=== PATIENT | female | born 1950 | race Caucasian/White ===

== ENCOUNTER 2016-07-16 14:00 | Inpatient (IN) | payer MEDICARE, OTHER ==
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
[2016-07-22] MEDS ORDERED: cefOXITIN 1 GM in NORMAL SALINE MINI-BAG+ 100 ML IV ONE (06:11)
[2016-07-22] MEDS ORDERED: cefOXITIN 1 GM/10 ML VIAL ONE (06:45)
[2016-07-22] MEDS ORDERED: LIDOCAINE HCL 1% 20 ML VIAL SUBCUT ONE ×2 (07:02→09:50)
[2016-07-22] MEDS ORDERED: LACTATED RINGERS 1,000 ML IV SCH ×3 (07:02→09:50)
[2016-07-22] MEDS: ACETAMINOPHEN 1,000 MG/100 ML VIAL IV SCH ×4 (07:06→19:14)
[2016-07-22] MEDS: FAMOTIDINE IN SALINE, ISO-OSM 20 MG/50 ML PIGGYBACK IV SCH ×2 (07:06→13:02)
[2016-07-22] MEDS ORDERED: HYDROmorphone HCL 1 MG/ML SYR ONE (07:14)
[2016-07-22] MEDS ORDERED: FENTANYL 100 MCG/2 ML VIAL ONE (07:14)
[2016-07-22] MEDS ORDERED: MIDAZOLAM HCL 2 MG/2 ML VIAL ONE (07:16)
--- NOTE | 2016-07-22 07:18 | PROCEDURE NOTE: GYN ---
[facility] [employer] [facility] Procedure - Brief Operative Note Date of procedure: 07/22/16 Pre-Op Diagnosis: Cystocele with uterine desensus Post-op diagnosis: same Procedure: TVH, Anterior repair, TOT, Cystoscopy Anesthesia Type: Spinal Physician: MARYBETH GALEANO Estimated Blood Loss: 50 Pathology: sent Sponge and instrument counts: correct Condition: stable Disposition: PACU Narrative: After placement of a spinal narcotic block in the pre-op area the patient is taken to the operating theater and placed supine on the operating table. General endotracheal anesthesia was induced. She is placed in dorsal lithotomy position using Mirza stirrups. Vagina and perineum are prepped, her bladder is drained, and then stained with indigo carmine dye. The patient is draped in the usual sterile fashion. The cervix is visualized and grasped with a double- tooth tenaculum. The vagina was incised circumferentially around the cervix. Using sharp and blunt dissection the anterior peritoneal reflection was identified and entered into sharply. A long retractor is then entered into this incision and the bladder is elevated. Posterior cul-de-sac was then entered into sharply and a long weighted retractor is entered into this incision. The uterosacral ligaments on both left and right sides are clamped cut and tied in a Edy fashion with 0 Vicryl sutures and tagged. Cardinal ligaments on both left and right sides are then clamped cut and ligated in Edy fashion with 0 Vicryl sutures. Uterine vessels on both left and right sides were then clamped cut and ligated in Edy fashion with 0 Vicryl sutures. The lower section of the broad ligament on both left and right sides are clamped cut and ligated in Edy fashion with 0 Vicryl sutures. Uterus is delivered posteriorly and the utero-ovarian round ligament complex on left right sides are clamped cut and ligated in Edy fashion with 0 Vicryl sutures. The uterus and cervix are removed and submitted to pathology. The left fallopian tube was mobilized and then the mesosalpinx is clamped cut and ligated in Edy fashion with 0 Vicryl sutures. The ovaries are atrophic and adherent to the pelvic sidewalls bilaterally so salpingoophorectomy is not performed. The posterior vaginal cuff was closed with a running interlocking 0 Vicryl suture. After assuring excellent hemostasis of all vascular pedicles the uterosacral ligament tags were attached to the lateral vaginal cuff, the anterior peritoneal reflection and exited the posterior cuff in the midline. The anterior vaginal mucosa is then infiltrated with a dilute solution of 1/4% Marcaine with epinephrine, mixed 50/50 with Saline. The anterior vaginal mucosa is then opened in the midline to the level of the mid-urethra. Using gentle sharp and blunt dissection the vagina is mobilized from the overlying bladder. After adequate mobilization the cystocele is repaired by plicating the vesico-vaginal fascia across the midline using 2-0 PDS mattress sutures. Following this a tract is created lateral to the mid-urethra on both sides using the Metzenbaum scissors in a "push spread" technique to the obturator fascia which is then perforated. The winged guide is placed and a Gynecare transobturator tension free vaginal tape is placed bilaterally and exited the skin through small stab wounds. A curved clamp is placed between the tape and the urethra. Tension on the tape is adjusted and the sheathing removed. The stab wounds are closed with Dermabond. The redundant vaginal mucosa is trimmed and then closed with interrupted figure of eight 2-0 Vicryl sutures.The vaginal cuff is closed with multiple figure of eight 0-Vicryl sutures. The uterosacral ligament tags are tied in the midline with excellent support of the vaginal cuff. Cystoscopy is then performed revealing no visible trauma to the bladder and flow of dye from the ureteral orifices bilaterally. A Valdes catheter is placed to down drain, the patient placed supine on the operating table, awakened by anesthesia and taken to PACU. the patient placed supine on the operating table, awakened by anesthesia and taken to PACU.
[2016-07-22] MEDS ORDERED: EPHEDrine SULFATE 50 MG/ML VIAL ONE (07:21)
[2016-07-22] MEDS ORDERED: PHENYLEPHRINE HCL 10,000 MCG/ML VIAL ONE (07:22)
[2016-07-22] MEDS: MIDAZOLAM HCL 2 MG/2 ML SYR IV ONE ×2 (07:25→08:09)
[2016-07-22] MEDS ORDERED: ETOMIDATE 40 MG/20 ML VIAL IV ONE (07:29)
[2016-07-22] MEDS ORDERED: SUCCINYLCHOLINE CHLORIDE 200 MG/10 ML VIAL ONE (07:29)
[2016-07-22] MEDS ORDERED: METHYLENE BLUE 10 MG/ML VIAL IV ONE (07:34)
[2016-07-22] MEDS ORDERED: NORMAL SALINE FLUSH 20 ML ONE (07:35)
[2016-07-22] MEDS ORDERED: NORMAL SALINE FLUSH 30 ML ONE (07:35)
[2016-07-22] MEDS ORDERED: BUPIVACAINE/EPI 0.25% 1 VIAL VIAL ONE (07:35)
[2016-07-22] MEDS ORDERED: FLUORESCEIN IV ONE (07:38)
[2016-07-22] MEDS ORDERED: ONDANSETRON HCL 4 MG/2 ML VIAL ONE (08:28)
[2016-07-22] MEDS ORDERED: DIPHENHYDRAMINE 50 MG/ML VIAL IV PRN ×2 (09:50→10:31)
[2016-07-22] MEDS ORDERED: ONDANSETRON HCL 4 MG/2 ML VIAL IV PRN ×2 (09:50→10:31)
[2016-07-22] MEDS ORDERED: DIPHENHYDRAMINE 25 MG CAPSULE PO PRN ×2 (09:50→10:31)
[2016-07-22] MEDS ORDERED: NALOXONE HCL 0.4 MG/ML VIAL IV PRN ×5 (09:50→10:31)
[2016-07-22] MEDS ORDERED: NALBUPHINE HCL 10 MG/ML AMP IV PRN (09:50)
[2016-07-22] MEDS ORDERED: HYDROmorphone HCL 1 MG/ML SYR IV PRN (09:50)
[2016-07-22] MEDS ORDERED: FENTANYL 100 MCG/2 ML VIAL IV PRN (09:50)
[2016-07-22] MEDS ORDERED: ZOLPIDEM TARTRATE 5 MG TABLET PO PRN (10:31)
[2016-07-22] MEDS ORDERED: SIMETHICONE CHEW 80 MG TABLET PO PRN (10:31)
[2016-07-22] MEDS ORDERED: ACETAMINOPHEN 1,000 MG/100 ML VIAL IV SCH (10:31)
[2016-07-22] MEDS: POTASSIUM CHLORIDE/D5 0.45%NAC 1,000 ML IV SCH ×2 (11:53→20:06)
--- NOTE | 2016-07-22 17:46 | PROGRESS NOTE: GYN Post-op ---
Assessment and Plan - Date of Encounter Date of Encounter: 07/22/16 (1) S/P gynecological surgery, follow-up exam Problem details: S/P TVH Anterior repair TOT Status: Acute Assessment and plan: Doing well, plan routine care. Voiding trials in am. 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 No concerns voiced at this time. 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: Post-op Note Objective - Latest Vital Signs and I&O Latest Vital Signs/I&O: Vital Signs Temp 36.3 C L 07/22/16 09:46 Pulse 75 07/22/16 12:50 Resp 20 07/22/16 10:15 BP 121/66 07/22/16 12:50 Pulse Ox 92 07/22/16 12:50 Intake & Output 07/21/16 07/22/16 07/22/16 17:59 05:59 17:59 Intake Total 1800 Output Total 300 Balance 1500 Weight 62.142 kg Intake: IV 1600 Left Wrist 1600 Oral 200 Output: Urine 300 Uretheral (Valdes) 300 Other: Urine Color Yellow Uretheral (Valdes) Indigo - Exam Lungs: Bilateral: normal Heart Rhythm: Present: regular Extremities: Absent: tenderness Abdomen: Present: soft Bowel sounds: present
[2016-07-22] MEDS: DOCUSATE SODIUM 100 MG CAPSULE PO SCH (20:06)
[2016-07-23] MEDS: ACETAMINOPHEN 1,000 MG/100 ML VIAL IV SCH ×2 (00:04→06:11)
[2016-07-23] MEDS ORDERED: SODIUM CHLORIDE ONE (00:07)
[2016-07-23] MEDS ORDERED: NORMAL SALINE FLUSH ONE (00:08)
[2016-07-23] MEDS: POTASSIUM CHLORIDE/D5 0.45%NAC 1,000 ML IV SCH (04:32)
[2016-07-23 06:34] LABS: BASOPHILS 0.4 % (0.0-2.0); EOSINOPHILS 1.5 % (0.0-6.0); EOSINOPHILS# 0.1 X 10^3uL (0.0-0.4); HEMOGLOBIN 13.4 g/dL (12.0-16.0); LYMPHOCYTES 22.5 % (20.0-40.0); LYMPHOCYTES# 1.1 X 10^3uL (0.8-3.8); MEAN CELL VOLUME 90.6 fL (80.0-100.0); MEAN CORPUS. HGB CONCENTRATION 33.6 g/dL (32.0-36.0); MEAN CORPUSCULAR HEMOGLOBIN 30.5 pg (29.0-35.0); MEAN PLATELET VOLUME 7.8 fL (7.4-10.4); MONOCYTES 9.7 % (2.0-10.0); MONOCYTES# 0.5 X 10^3uL (0.2-1.0); NEUTROPHILS 65.9 % (54.0-75.0); PLATELET COUNT 190 X 10^3uL (130-440); RED BLOOD COUNT 4.42 X 10^6uL (4.20-6.10); RED CELL DISTRIBUTION WIDTH 12.9 % (11.5-14.5); WHITE BLOOD COUNT 4.7 X 10^3uL (3.9-10.7)
[2016-07-23 06:41] LABS: BLOOD UREA NITROGEN 8 mg/dL (7-17); CALCIUM 8.5 mg/dL (8.4-10.2); CHLORIDE 108 mmol/L (98-107); CREATININE 0.7 mg/dL (0.5-1.0); EST GLOMERULAR FILTRATION RATE > 60 mL/min; GLUCOSE 108 mg/dL (70-100); POTASSIUM 4.2 mmol/L (3.5-5.1); SODIUM 139 mmol/L (137-145)
[2016-07-23] MEDS: DOCUSATE SODIUM 100 MG CAPSULE PO SCH (08:30)
[2016-07-23] MEDS: IBUPROFEN 600 MG TABLET PO PRN ×2 (09:18→14:01)
[2016-07-23] MEDS ORDERED: LOSARTAN POTASSIUM 50 MG TABLET PO SCH (12:00)
[2016-07-23 12:02] VITALS: BP 123/70; PULSE 69; RESP 16; TEMP 98.9; O2SAT 97
--- NOTE | 2016-07-23 12:29 | DC SUMMARY: Obstetrical/GYN ---
Discharge Summary: Surg/OB Provider: Date of Admission: 07/22/16 Admitting Provider: MARYBETH GROSSMAN MD Attending Provider: MARYBETH GROSSMAN MD Discharging Provider: MARYBETH GROSSMAN MD Primary Care Provider: Discharge Date: 07/23/16 - Diagnosis (1) S/P gynecological surgery, follow-up exam Status: Acute Hospital Course: Ms. CALVIN is a 66 year old female admitted for TVH, Anterior repair and TOT. Her surgery was without complication and postoperatively she did well with good return of bowel and bladder function. On her second void her PVR was zero. She is discharged to home in good condition on the first postoperative day. Discharge - Patient/Caregiver Discharge Instructions Activity Level: Abdominal and pelvic rest Diet: Regular Additional Instructions: Marybeth Grossman M.D. [address] [place] [address] PHONE [phone] FAX [phone] Reviewed 09/2014 Post Hysterectomy and/or Vaginal Repair 1. Please make an appointment for your first post operative check up to see me one week from the date of surgery. Your second post operative appointment should be made six weeks from the date of your surgery. Call the clinic to make these appointments. Do not hesitate to call me, or my nurse, with any questions or problems. 2. Get plenty of rest. You will tire more easily than you might expect. It would be best for you to restrict your activities until after your first post operative visit. As you feel up to it, you may increase your activity. Use your own judgment, listen to your body, and take frequent short rests as you become tired. Your restrictions will probably be lifted after your second post operative visit. 3. You will receive a prescription for pain pills upon hospital discharge. I recommend you alternate these with ibuprofen. If needed, take as directed. Contact me if strength is inadequate. Do not drive a car or operate machinery as long as you are taking narcotic pain medication. 4. No heavy lifting or straining. Do not lift anything more than 20 pounds. 5. You may climb stairs but try to make the trip worthwhile. Do not walk up and down excessively. 6. Take only showers for the first two weeks. Sitz baths may be taken to help relieve perineal discomfort. Baths may be taken after two weeks if desired. 7. You may have vaginal spotting for approximately four to six weeks. There may be an odor or you may pass suture material. Use mini or maxi pads. The bleeding should not be heavier than a normal period. Report any bleeding heavier than a period to me immediately. 8. Bleeding may be heavier after activity. If your bleeding does not slow down after resting, please notify me immediately. 9. No pelvic activity. No tampons, douching or intercourse. 10. If bladder surgery was performed, it may take days or even weeks for your bladder to perform adequately. You may go home with a bladder catheter which will be removed the week after surgery. Do not go longer than four hours without voiding during the day time. 11. If you feel constipated, use Milk of Magnesia at bedtime. 12. Eat a well-balanced diet. You should drink 6-8 glasses of fluid per day. Fresh fruits, green leafy vegetables, bran cereals and whole wheat breads should be eaten to prevent constipation. If necessary, stool softeners may be obtained at the pharmacy without a prescription. Use as directed. 13. Report any vomiting or fever above 100.5 degrees immediately. 14. I can be reached through the hospital nursing station ([phone]), Charge Nurse ([phone]) or Hospital Statement Distribution Clerk ([phone]). Marybeth Grossman M.D. 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 Discharge Exam - Latest Vital Signs and I&O Latest Vital Signs/I&O: Vital Signs Temp 37.2 C 07/23/16 11:00 Pulse 69 07/23/16 11:00 Resp 16 07/23/16 11:00 BP 123/70 07/23/16 11:00 Pulse Ox 97 07/23/16 11:00 Intake & Output 0407/23/16 07/23/16 17:59 05:59 17:59 Intake Total 3315 1880 Output Total 800 2750 Balance 2515 -870 Weight 62.142 kg Intake: IV 2475 1380 Left Wrist 2475 1380 Oral 840 500 Output: Urine 800 2750 Uretheral (Valdes) 300 Other: Urine Appearance Clear Clear Clear Urine Color Yellow Yellow Yellow Uretheral (Valdes) Indigo Voiding Method Indwelling Catheter Indwelling Catheter - Exam Lungs: Bilateral: normal Heart Rhythm: Present: regular Extremities: Absent: tenderness Abdomen: Present: soft. Absent: distention Bowel sounds: present Discharge Summary Data - Medication History Medication History: Home Medications Caltrate 600 Plus D3 Tablet 600 mg PO DAILY 07/16/16 Alendronate Sodium 70 mg PO WEEKLY 07/22/16 Losartan Potassium [Cozaar*] 50 mg PO DAILY 07/22/16 [place]-3 Fatty Acids/Fish Oil [Fish Oil 1,000 mg Softgel] 1 each PO DAILY Simvastatin [Simvastatin*] 20 mg PO HS 07/22/16 aspirin EC [Aspirin EC*] 81 mg PO DAILY 07/22/16 Inpatient Medications 07/22/16 10:31 Ondansetron HCl [Zofran] 4 mg IV Q6H PRN Simethicone Chew [Mylicon] 80 mg PO Q4H PRN Zolpidem Tartrate [Ambien] 5 mg PO HS PRN oxyCODONE HCL IR [Oxy Ir] 5 mg PO Q3H PRN 07/22/16 21:00 Docusate Sodium [Colace] 100 mg PO BID 07/23/16 08:16 Ibuprofen [Motrin] 600 mg PO Q6H PRN 07/23/16 12:00 Losartan Potassium [Cozaar] 50 mg PO DAILY Procedures and tests throughout hospitalization: Completed Lab Orders 07/23/16 05:00 BASIC METABOLIC PANEL [CHEM] AMDRAW CBC AUTO DIF, MDIF/RMOR IF IND [HEM] AMDRAW Pending Orders 07/16/16 19:57 Resuscitation Status Routine 07/22/16 06:11 Anesthesia Type . NPO After midnight 0000 Pre-op by anesthesia . Sequential Compression Device WHILE IN BED 07/22/16 07:02 Anesthesia Type . Insert Peripheral IV ONCE 07/22/16 09:50 Radha hugger if temp <34 C PRN Did pt have a spinal/epidural? . Maintain IV access post spinal CONTINUOUS Narcan @ bedside x24h after sp .x24hrs Warm blankets if temp<36 C PRN 07/22/16 10:31 Admit: Observation Routine Advance diet as tolerated . Bladder Scan/ PVR AFTER EVERY VOID Dressing Change PRN Incentive Spirometry Q1H Intake and Output QSHIFT I&O K Pad PRN Notify Physician PRN Straight Cath IF BS>500MLS Teach: Post Hysterectomy &/or . Turn, Cough, and Deep Breathe Q1H Vital Signs Q15MX4,Q30MX2,Q1HX2,Q4H Ondansetron HCl [Zofran] 4 mg IV Q6H PRN Simethicone Chew [Mylicon] 80 mg PO Q4H PRN Zolpidem Tartrate [Ambien] 5 mg PO HS PRN oxyCODONE HCL IR [Oxy Ir] 5 mg PO Q3H PRN 07/22/16 21:00 Docusate Sodium [Colace] 100 mg PO BID 07/22/16 Dinner Regular [DIET] 07/23/16 08:14 Vital Signs ROUTINE VITALS (Q4H) 07/23/16 08:16 Ibuprofen [Motrin] 600 mg PO Q6H PRN 07/23/16 09:00 Dressing Change POD #1 May shower with wound uncovere POD #1 07/23/16 09:52 Activity: Ambulate with Assist TID 07/23/16 12:00 Losartan Potassium [Cozaar] 50 mg PO DAILY Labs on day of discharge: Labs from last 24 hours 07/23/16 05:00 WBC 4.7 RBC 4.42 Hgb 13.4 Hct 40.0 MCV 90.6 MCH 30.5 MCHC 33.6 RDW 12.9 Plt Count 190 MPV 7.8 Neutrophils % 65.9 Lymphocytes % 22.5 Eosinophils % 1.5 Basophils % 0.4 Neutrophils # 3.0 Lymphocytes # 1.1 Monocytes 9.7 Monocytes # 0.5 Eosinophils # 0.1 Basophils # 0.0 Sodium 139 Potassium 4.2 Chloride 108 H Carbon Dioxide 24 BUN 8 Creatinine 0.7 GFR Calculation > 60 Glucose 108 H Calcium 8.5
== END 2016-07-23 12:28 | disposition home or self-care (01) | DRG 761 ==
LOC: IN 07-22 06:02 → UNDOADMIN 07-22 06:02 → IN 07-22 10:31
PROVIDERS: ADMIT Obstetrics & Gynecology; ATTEND Obstetrics & Gynecology
DX: N81.4 Uterovaginal prolapse, unspecified (principal); D25.9 Leiomyoma of uterus, unspecified; M85.80 Other specified disorders of bone density and structure, unspecified site; I35.1 Nonrheumatic aortic (valve) insufficiency; I10 Essential (primary) hypertension; E78.5 Hyperlipidemia, unspecified; Z79.899 Other long term (current) drug therapy
CPT/HCPCS: 36415; 80048; 85025; J0694; J1170; J2250; J2370; J2405; J3480